=== PATIENT | male | born 1940 | race Caucasian/White ===

== ENCOUNTER 2017-04-28 07:55 | Emergency (ER) | payer OTHER ==
[~2017-04-28] VITALS: Ht 180.3 cm; Wt 107.3 kg
[~2017-04-28 07:55] MED LIST: DIOVAN HCT 11 TABLET PO; METFORMIN HCL1000 MG PO; PROTONIX40 MG PO
[2017-04-28 09:08] LABS: EOSINOPHIL COUNT 0.3 K/uL (0-0.3); HEMATOCRIT 33.9 % (38.0-50.0); IMMATURE GRANULOCYTE (%) 0.6 % (0.0-0.7); INSTRUMENT ABS NEUTROPHIL CT 4.5 K/uL; LYMPHOCYTE COUNT 1.4 K/uL (1.0-2.8); MCH 29.5 PG (29.0-34.0); MCV 89.2 FL (86-99); MEAN PLAT.VOLUME 10.8 uM^3 (9.0-12.4); MONOCYTE (%) 8.7 % (3-12); MONOCYTE COUNT 0.6 K/uL (0-0.8); NEUTROPHIL (%) 66.5 % (45-76); NEUTROPHIL COUNT 4.5 K/uL (1.8-6.4); PLATELET COUNT 182 K/uL (156-360); RBC DIS.WIDTH-CV 12.8 % (11.8-14.6); WHITE BLOOD COUNT 6.8 K/uL (4.1-10.2)
[2017-04-28 09:18] LABS: CHLORIDE 106 mEq/L (99-109); POTASSIUM 3.8 mEq/L (3.7-5.4); SODIUM 139 mEq/L (136-147)
[2017-04-28 09:20] LABS: GLUCOSE 137 mg/dL (70-99)
[2017-04-28 09:21] LABS: ANION GAP 8 MEQ/L (2-14)
[2017-04-28 09:22] LABS: TOTAL BILIRUBIN 0.4 mg/dL (0.0-1.0)
[2017-04-28 09:23] LABS: ALKALINE PHOSPHATASE 67 IU/L (3-129)
[2017-04-28 09:24] LABS: GFR ESTIMATE (CALCULATED) 57 mL/min/
[2017-04-28 09:25] LABS: UREA NITROGEN (BUN) 27 mg/dL (9-23)
[2017-04-28 09:30] LABS: TROP-I INTERPRETATION NEGATIVE; TROPONIN-I 0.07 ng/mL (0.0-0.30)
[2017-04-28 09:35] LABS: HDL CHOLESTEROL 37 MG/DL (Desirable>=40); LDL CHOLESTEROL 60 mg/dL (Desirable<100); NON-HDL CHOLESTEROL 76 mg/dL (Desirable<160); TOTAL CHOLESTEROL 113 mg/dL (Desirable<200); TRIGLYCERIDES 82 MG/DL (Normal: <150)
[2017-04-28 10:23] LABS: Estimated Average Glucose 169 mg/dL (70-123); HEMOGLOBIN A1c (GLYCOHEMOGLOB) 7.5 % HGB (Below 5.7)
[2017-04-28] MEDS ORDERED: LIPITOR20 MG PO (13:19)
[2017-04-28] MEDS ORDERED: METFORMIN HCL500 M1 PO (13:20)
[2017-04-28 14:22] LABS: TROP-I INTERPRETATION NEGATIVE; TROPONIN-I 0.08 ng/mL (0.0-0.30)
[2017-04-29 02:54] VITALS: BP 130/81
== END 2017-04-29 03:17 | disposition short-term general hospital (02) ==
LOC: EME → EDBD 07:55 → EME 07:55
PROVIDERS: Emergency Medicine
DX: G45.9 Transient cerebral ischemic attack, unspecified (principal); I71.2 Thoracic aortic aneurysm, without rupture; R00.1 Bradycardia, unspecified; I10 Essential (primary) hypertension; E11.9 Type 2 diabetes mellitus without complications; Z79.84 Long term (current) use of oral hypoglycemic drugs
CPT/HCPCS: 70450; 71020; 71275; 80053; 80061; 81003; 83036; 84484; 85025; 93005; 93880; 99281; 99285; J7040